=== PATIENT | male | born 1995 | race American Indian/Alaskan Native ===

== ENCOUNTER 2020-10-04 01:16 | Emergency (ER) | payer BC ==
[2020-10-04] MEDS ORDERED: Ondansetron ODT 8 MG TAB ONE (04:24)
== END 2020-10-04 04:58 | disposition home or self-care (01) ==
LOC: ERS 01:16
DX: F10.129 Alcohol abuse with intoxication, unspecified (principal)
CPT/HCPCS: 36416; 99285; Q0162